=== PATIENT | female | born 1980 | race Caucasian/White ===

== ENCOUNTER 2018-04-14 18:36 | Inpatient (IN) | payer OTHER, MEDICARE ==
[2018-04-14] MEDS ORDERED: SODIUM CHLORIDE 0.9% 1000ML 1,000 ML IVS ONE ×2 (19:19)
[2018-04-14] MEDS ORDERED: PANTOPRAZOLE SODIUM IV 40 MG VIAL IV ONE (19:20)
[2018-04-14] MEDS ORDERED: PROMETHAZINE HCL INJ 12.5 MG in SODIUM CHLORIDE 0.9% 50ML 50 ML IVPB ONE (19:20)
--- NOTE | 2018-04-14 19:49 | RAD ---
EXAM DESCRIPTION: Abdomen Series CLINICAL HISTORY: 38 years Female [place] COMPARISON: None. FINDINGS: Heart size within normal limits. Pacemaker in place. [id number] catheter over the left chest. No acute consolidation or fluid. Mild elevation the right hemidiaphragm. Postsurgical changes the lower lumbar spine. Nonspecific bowel gas pattern. S[employer] shunt tube with its tip in the right pelvis. IMPRESSION: No acute abnormality is identified. S[employer]ING [employer] shunt tube with its tip in the right pelvis. There is an area of looping over the left upper abdomen. 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
[2018-04-14] MEDS ORDERED: SODIUM CHLORIDE 0.9% 50ML 50 ML ONE ×2 (20:12→22:06)
[2018-04-14] MEDS ORDERED: PROMETHAZINE HCL INJ 25 MG/ML VIAL ONE (20:12)
[2018-04-14] MEDS ORDERED: FLUCONAZOLE 100 MG TAB PO ONE (20:40)
[2018-04-14] MEDS ORDERED: MORPHINE SULFATE INJ 10 MG/ML VIAL IV ONE (20:50)
[2018-04-14] MEDS ORDERED: MAGNESIUM SULFATE PREMIX 2GM 2 GM in PREMIX BAG 1 BAG IVPB ONE (20:52)
[2018-04-14] MEDS ORDERED: CEFEPIME 1 GM in SODIUM CHLORIDE 0.9% 50ML 50 ML IVPB ONE (21:07)
[2018-04-14] MEDS ORDERED: CIPROFLOXACIN 500 MG TAB PO ONE (21:07)
[2018-04-14] MEDS ORDERED: MAGNESIUM SULFATE PREMIX 2GM 50 ML IVPB ONE (21:26)
--- NOTE | 2018-04-14 21:59 | ED.PDOC ---
History of Present Illness - General Chief Complaint: Problem Stated Complaint: Dx UTI, N/V/D, Bilateral flank pain, headache Time Seen by Provider: 04/14/18 18:51 Source: patient Exam Limitations: no limitations - History of Present Illness Initial Comments: the patient is a 38-year-old female presenting to the emergency room secondary to symptoms of pyelonephritis on the left side with urinary frequency and dysuria along with her recurrent nausea and vomiting that goes with her gastroparesis. The patient does appear to be very mildly dehydrated. She does have a port for medications. The patient was apparently started on oral ciprofloxacin by her primary care doctor 3 days ago but she reports she has been unable to hold down these medications. No syncope or near-syncope. No chest pain. No bilious vomiting and no blood. She has not actually thrown up since her arrival here. No fever. She does have left-sided costovertebral angle tenderness. as a matter of record I am very familiar with this patient. She has a very extensive history of serious medical problems. She also has a very extensive history of drug seeking, and can be highly devious and manipulative in that endeavor. she has previously asked for pain and nausea medications to the point where she stopped breathing, requiring resuscitation efforts by staff. I have personally witnessed this in the past. she has been to substance rehabilitation several times in the past Timing/Duration: 1 week Severity: moderate Improving Factors: nothing Worsening Factors: nothing Associated Symptoms: malaise, nausea/vomiting Allergies/Adverse Reactions: Allergies Diltiazem [From Cardizem CD] Allergy (Verified 04/14/18 19:25) Ketorolac Tromethamine [From Toradol] Allergy (Verified 04/14/18 19:25) Latex Allergy (Verified 04/14/18 19:25) Ondansetron [From Zofran] Allergy (Verified 04/14/18 19:25) Sulfa Antibiotics Allergy (Verified 04/14/18 19:25) Home Medications: Ambulatory Orders Amphetamine-Dextroamphetamine [Adderall] 30 mg PO QID 04/14/18 Duloxetine HCl [Cymbalta] 120 mg PO DAILY 04/14/18 Lurasidone HCl [Latuda] 120 mg PO DAILY 04/14/18 Temazepam [Restoril] 30 mg PO BEDTIME 04/14/18 Review of Systems - Review of Systems Constitutional: States: malaise EENTM: States: no symptoms reported Respiratory: States: no symptoms reported Cardiology: States: no symptoms reported Gastrointestinal/Abdominal: States: nausea, vomiting Genitourinary: States: no symptoms reported Musculoskeletal: States: back pain Skin: States: no symptoms reported Neurological: States: no symptoms reported Endocrine: States: no symptoms reported All other Systems: No Change from Baseline Past Medical History (General) - Patient Medical History Hx Seizures: No Hx Stroke: No Hx Dementia: No Hx Asthma: No Hx of COPD: No Hx Cardiac Disorders: Yes Hx Congestive Heart Failure: No Hx Pacemaker: Yes Hx Hypertension: No Hx Thyroid Disease: No Hx Diabetes: No Hx Gastroesophageal Reflux: No Hx Renal Disease: No Hx of HIV: No Hx MRSA: No Surgical History: appendectomy, cholecystectomy - Vaccination History Hx Tetanus, Diphtheria Vaccination: No Hx Influenza Vaccination: Yes - Social History Hx Tobacco Use: Yes Hx Alcohol Use: No Family Medical History - Family History Mother Family History: Unknown Physical Exam - Physical Exam General Appearance: Alert, No apparent distress Eye Exam: bilateral normal Ears, Nose, Throat: hearing grossly normal, normal ENT inspection, normal pharynx Neck: full range of motion, supple Respiratory: lungs clear, normal breath sounds, no respiratory distress, no accessory muscle use Cardiovascular/Chest: normal peripheral pulses, regular rate, rhythm, no edema Peripheral Pulses: radial,right: 2+, radial,left: 2+, dorsalis pedis,right: 2+, dorsalis pedis,left: 2+ Gastrointestinal/Abdominal: soft, other - mild diffuse discomfort Rectal Exam: deferred Back Exam: CVA tenderness (L) Extremity: no pedal edema, normal capillary refill Neurologic: digital production artist II-XII nml as tested, alert, oriented x 3 Skin Exam: normal color Comments: Vital Signs - 24 hr 04/14/18 19:06 Temperature 99.1 F Pulse Rate [ 71 monitor] Respiratory 16 Rate Blood Pressure 117/80 [Left Arm] O2 Sat by Pulse 99 Oximetry Progress - Progress Progress: 04/14/18 22:06 the patient is a 38-year-old female with a long-standing history of gastroparesis and recurrent urinary tract infections presenting with what is most likely pyelonephritis on the left side. This is complicated by her gastroparesis and inability to keep down her medications were keep herself adequately hydrated. The patient has received a liter of IV fluids and is receiving a dose of cefepime and ciprofloxacin. She will be admitted for continuation of IV fluids and antibiotic therapy. Symptoms will be controlled this best can be judiciously determined. - Results/Orders Results/Orders: 04/14/18 21:43 BLOOD CULTURE Stat Laboratory Results - last 24 hr 04/14/18 04/14/18 04/14/18 19:14 20:07 20:07 WBC 15.3 H RBC 4.00 L Hgb 12.6 Hct 38.1 MCV 95.4 MCH 31.5 H MCHC 33.1 RDW 13.9 Plt Count 317 MPV 8.4 Absolute Neuts (auto) 12.00 H Absolute Lymphs (auto) 2.10 Absolute Monos (auto) 1.20 H Absolute Eos (auto) 0.00 Absolute Basos (auto) 0.00 Neutrophils % 78.5 H Lymphocytes % 13.5 L Monocytes % 7.7 Eosinophils % 0.0 L Basophils % 0.3 Sodium 137 Potassium 3.5 L Chloride 105 Carbon Dioxide 22 Anion Gap 13.5 BUN 16 Creatinine 0.90 BUN/Creatinine Ratio 17.8 Random Glucose 114 H Serum Osmolality 275.9 Lactic Acid Calcium 9.4 Magnesium 1.7 L Total Bilirubin 0.3 AST 19 ALT 18 Alkaline Phosphatase 60 Serum Total Protein 6.6 Albumin 3.7 Globulin 2.9 Albumin/Globulin Ratio 1.3 Amylase 38 Lipase 24 Urine Color Yellow Urine Appearance Cloudy Urine pH 5.0 Ur Specific Thayer >= 1.030 Urine Protein Negative Urine Glucose (UA) Negative Urine Ketones Negative Urine Blood Negative Urine Nitrite Negative Urine Bilirubin Negative Urine Urobilinogen 0.2 Ur Leukocyte Esterase Small H Urine RBC 10-20 H Urine WBC 10-20 H Ur Epithelial Cells Tntc Amorphous Sediment 3+ Urine Bacteria 3+ H Urine Yeast 1+ budding H 04/14/18 20:07 WBC RBC Hgb Hct MCV MCH MCHC RDW Plt Count MPV Absolute Neuts (auto) Absolute Lymphs (auto) Absolute Monos (auto) Absolute Eos (auto) Absolute Basos (auto) Neutrophils % Lymphocytes % Monocytes % Eosinophils % Basophils % Sodium Potassium Chloride Carbon Dioxide Anion Gap BUN Creatinine BUN/Creatinine Ratio Random Glucose Serum Osmolality Lactic Acid < 0.3 L Calcium Magnesium Total Bilirubin AST ALT Alkaline Phosphatase Serum Total Protein Albumin Globulin Albumin/Globulin Ratio Amylase Lipase Urine Color Urine Appearance Urine pH Ur Specific Thayer Urine Protein Urine Glucose (UA) Urine Ketones Urine Blood Urine Nitrite Urine Bilirubin Urine Urobilinogen Ur Leukocyte Esterase Urine RBC Urine WBC Ur Epithelial Cells Amorphous Sediment Urine Bacteria Urine Yeast Departure - Departure Clinical Impression: Gastroparesis, Pyelonephritis Disposition: Admit Patient Referrals: MAMIE SOLIS [Primary Care Provider] - 1-2 Weeks Home Medications: Ambulatory Orders Amphetamine-Dextroamphetamine [Adderall] 30 mg PO QID 04/14/18 Duloxetine HCl [Cymbalta] 120 mg PO DAILY 04/14/18 Lurasidone HCl [Latuda] 120 mg PO DAILY 04/14/18 Temazepam [Restoril] 30 mg PO BEDTIME 04/14/18 Decision To Admit - Decistion To Admit Decision to Admit Reason: Medical Nature Decision to Admit Date: 04/14/18 Decision to Admit Time: 22:07
--- NOTE | 2018-04-14 22:02 | HP ---
SUPERVISING PHYSICIAN: Rory Tomlin MD CHIEF COMPLAINT: Lower abdominal pain, bilateral flank pain. HISTORY OF PRESENT ILLNESS: Ms. Anna is a 38-year-old, female patient that presented to the Emergency Room last night with complaints of left sided flank pain and ongoing urinary tract infection with some dysuria with recurrent nausea and vomiting. She does have a history of cyclic vomiting syndrome as well and was unable to hold any medications down after she was seen in the clinic this past Saturday for urinary tract infection and started on Cipro. She has not had any syncopal or near syncopal episodes. On admission, she denied any chest pain and no hematemesis. She was afebrile on initial presentation with blood pressure 117/80, temperature 99.1, saturation 99% on room air. On exam, she had severe left flank pain. Laboratory studies showed leukocytosis with white count 15,300 with left shift. Chemistries showed just a mildly low potassium at 3.5 along with a low magnesium at 1.7. Serum HCG was negative. Urinalysis on microscopic showed 10 to 20 WBCs, 10 to 20 RBCs with too numerous to count epithelials, but 3+ amorphus, 3+ bacteria and 1+ budding yeast. Blood cultures were completed as well as urine culture and then the patient was started on parenteral antibiotic to include cefepime as well as continued oral ciprofloxacin in the Emergency Room. Dr. Aranda, the Emergency Room physician, requested the patient be admitted for concerns for early pyelonephritis with the patient having cyclic vomiting syndrome and unable to hold any oral medication or oral hydration in of any difficult amount. She was admitted in stable condition. PAST MEDICAL HISTORY: 1. Cyclic vomiting syndrome. 2. 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 3. Hydrocephalus diagnosed in 2002 with ventriculoperitoneal shunt placement. 4. Migraines. 5. Hypertension. 6. Anxiety and depression. 7. Attention deficit hyperactivity disorder on Ritalin. PAST SURGICAL HISTORY: 1. Mediport in place. 2. Pacemaker in 2010. 3. Ventriculoperitoneal shunt placement in 2002. 4. Two left ankle surgeries. 5. Cholecystectomy. 6. Appendectomy. 7. 360 fusion of the back. 8. Multiple arthroscopic procedures on both knees. HOME MEDICATIONS: 1. Maxalt 10 mg p.r.n. 2. Clonidine 0.2 mg q.1h. 3. Xanax 2 mg t.i.d. 4. Metoprolol 50 mg daily. 5. Lisinopril 40 mg daily. 6. Adderall 30 mg q.i.d. 7. Restoril 30 mg at bedtime. 8. Latuda 120 mg daily. ALLERGIES: CARDIZEM, FENTANYL, TORADOL, ZOFRAN, LYRICA, SULFA CONTAINING ANTIBIOTICS. FAMILY HISTORY: Mother and father both have depression and anxiety issues along with hypertension. She has one younger sister that is healthy. SOCIAL HISTORY: The patient is disabled. She lives in [facility]. She does smoke half a pack of cigarettes a day, but denies any alcohol usage or illicit drug use. She is . She does not have any children. REVIEW OF SYSTEMS: CONSTITUTIONAL: Positive for general malaise. No fevers, chills or unintentional weight loss or gain. HEENT: Denies nasal congestion, earaches, sore throat, vision changes. RESPIRATORY: Denies shortness of breath, wheezing, coughing or exertional dyspnea. CARDIOVASCULAR: On admission to the Medical/Surgical Floor, the patient does report chest pains, but denies any syncopal episodes. GASTROINTESTINAL: As noted in history of present illness, nausea and vomiting with lower quadrant abdominal pain or suprapubic pain. GENITOURINARY: Notable dysuria with some suprapubic discomfort. No hematuria or polyuria. NEUROLOGIC: She denies any neurological deficits, syncopal episodes, ataxia, seizures or other focal neurological deficits. PHYSICAL EXAMINATION: VITAL SIGNS: Temperature 99.1. Pulse 71. Blood pressure 117/80. Respirations 16. Saturation 99% on room air. Admission weight 107.5 kg. GENERAL: On admission to the Medical/Surgical Floor, the patient was resting comfortable in no acute distress, very well-nourished. HEENT: Tympanic membranes clear bilaterally. Oropharynx is pink, moist without any lesions. NECK: Supple, nontender with full range of motion. RESPIRATORY: Lungs clear to auscultation bilaterally without any rhonchi, wheezes, or rales. CARDIOVASCULAR: Regular rate and rhythm without any appreciable murmurs, gallops, or rubs. ABDOMEN: Soft with some mild diffuse discomfort noted, but no rebound tenderness , no guarding. EXTREMITIES: There is no cyanosis, clubbing or edema. BACK: Notable CVA tenderness on the left. NEUROLOGIC: The patient is alert and oriented times three. Cranial nerves II- XII are grossly intact. Facial features are symmetrical. Extraocular movements are within normal limits. There is no nystagmus noted. LABORATORY: CBC showed white count 15,300 with hemoglobin 12.6, hematocrit 38.1 , platelet count 317,000. Differential does show a left shift. Chemistries showed low potassium of 3.5. Otherwise, other electrolytes were within normal limits. Magnesium was low at 1.7. Lactic acid 0.3, creatinine 0.9, BUN 16. Liver functions all within normal limits as well as amylase and lipase. Serum HCG was negative. Urinalysis showed cloudy urine with greater than 1.030 specific gravity, pH 5, small amount of leukocyte esterase with microscopic revealing 10 to 20 RBCs and WBCs and too numerous to count epithelials with 3+ amorphus sediment and 3+ bacteria with 1+ budding hyphae. RADIOLOGY: She had a normal x-ray in the Emergency Room prior to admission with no acute abnormalities identified. Chest x-ray was pending at time of admission. ASSESSMENT: 1. Urinary tract infection having failed to respond to outpatient treatment plan, now with concerns for developing pyelonephritis, complicated by underlying yeast infection. 2. Cyclic vomiting syndrome requiring aggressive medical management, likely worsened by underlying infectious process to include urinary tract infection. 3. History of hydrocephalus with a ventriculoperitoneal shunt with no complications noted. 4. History of supraventricular tachycardia with previous three failed ablations and AV node obliteration in 2010 requiring pacemaker implantation. 5. History of migraines. 6. Hypertension, fairly well controlled. 7. Anxiety and depression. 8. Attention deficit hyperactivity disorder on Ritalin. PLAN: The patient is going to be admitted to the Medical/Surgical Floor for ongoing treatment of urinary tract infection with likely pyelonephritis. We will do an ultrasound in the morning of the kidneys to further evaluate for pyelonephritis. Until then, we will continue antibiotics with cefepime. In regards to the yeast infection, she was given Diflucan. We will go ahead and give her 200 mg of Diflucan daily until we get her culture back. She will be on DVT prophylaxis per protocol. We will anticipate length of stay to be at least 2 to 3 days. Until the patient is showing clinical improvement and can transition to p.o. medications for outpatient management, we will continue to monitor the patient closely and treat as needed. Once able to transition to the outpatient setting, she will need followup with her primary care physician, Dr. Ly in [place], [place]. #[id number] #[id number] MELLISA
[2018-04-14] MEDS ORDERED: CEFEPIME 2 GM VIAL ONE (22:05)
[2018-04-14] MEDS ORDERED: IV SET AND CAP CHANGE INJ INJ SCH (23:00)
[2018-04-14] MEDS ORDERED: MORPHINE SULFATE INJ 10 MG/ML VIAL IV PRN (23:02)
[2018-04-15] MEDS ORDERED: PROMETHAZINE HCL INJ 25 MG/ML VIAL ONE ×4 (00:14→22:44)
[2018-04-15] MEDS ORDERED: MORPHINE SULFATE INJ 10 MG/ML VIAL ONE (00:14)
[2018-04-15] MEDS ORDERED: SODIUM CHLORIDE 0.9% 50ML 50 ML ONE ×5 (00:15→22:45)
[2018-04-15] MEDS: PROMETHAZINE HCL INJ 25 MG in SODIUM CHLORIDE 0.9% 50ML 50 ML IVPB PRN ×4 (00:31→22:47)
[2018-04-15] MEDS: SODIUM CHLORIDE 0.9% (FLUSH) 10 ML SYG IV PRN ×3 (00:32→04:39)
[2018-04-15] MEDS: KCL 20MEQ/D5 1/2NS 1,000 ML IVS PRN ×3 (01:09→20:01)
[2018-04-15] MEDS: diphenhydrAMINE HCL 50 MG/ML VIAL IV PRN ×3 (03:37→19:47)
[2018-04-15] MEDS: MORPHINE SULFATE INJ 10 MG/ML VIAL IV PRN ×4 (03:37→20:00)
[2018-04-15] MEDS: NICOTINE PATCH 14 MG TD SCH ×2 (05:06→09:08)
--- NOTE | 2018-04-15 07:02 | RAD ---
EXAM DESCRIPTION: Single view of the chest CLINICAL HISTORY: chest pain COMPARISON: None. FINDINGS: Single frontal view of the chest. Right-sided dual-lead pacemaker. Left-sided Mediport. The jugular peritoneal shunt tubing. Low lung volumes. The cardiomediastinal silhouette has normal size and contour. No definite consolidation, pneumothorax, or pleural effusion. Crowding of hilar structures likely related to low lung volumes. No acute osseous abnormalities. Upper abdominal soft tissues are unremarkable. IMPRESSION: 1. No acute pneumonic process identified. Electronically signed by: José Miguel Nolen 04/15/2018 7:00 AM CDT
[2018-04-15] MEDS ORDERED: SODIUM CHL 0.9% 50ML MIN-BAG+ 50 ML IVPB ONE (08:03)
[2018-04-15] MEDS ORDERED: CEFEPIME 2 GM VIAL ONE ×2 (08:03→19:38)
[2018-04-15] MEDS: CEFEPIME 1 GM in SODIUM CHLORIDE 0.9% 50ML 50 ML IVPB SCH ×2 (09:07→20:56)
[2018-04-15] MEDS: FLUCONAZOLE 100 MG TAB PO SCH (09:08)
--- NOTE | 2018-04-15 16:48 | US ---
EXAM DESCRIPTION: Renal CLINICAL HISTORY: 38 years Female pyelonephritis COMPARISON: None. TECHNIQUE: Transabdominal grayscale imaging performed to evaluate the kidneys. FINDINGS: Kidneys appear normal in size. The right measures 10.4 x 4.6 cm. Left kidney measures 8.9 x 6.2 cm. No hydronephrosis mass or calculus. Unremarkable aorta. Bladder was not included. IMPRESSION: Unremarkable kidneys. If there is concern for pyelonephritis recommend contrast-enhanced CT with delayed images to the kidneys Electronically signed by: Monika Ferrera MD 04/15/2018 4:47 PM CDT
[2018-04-15] MEDS ORDERED: TEMAZEPAM 15 MG CAP ONE (19:38)
--- NOTE | 2018-04-15 19:58 | PN ---
DATE: 04/15/18 SUPERVISING PHYSICIAN: José Miguel Tomlin M.D. SUBJECTIVE: The patient is lying in bed. She has just had some clear liquids. She tolerated those well. She still has some complaints of some lower abdominal pain, but no nausea or vomiting, constipation, diarrhea, chest pain or shortness of breath. OBJECTIVE: VITAL SIGNS: She is afebrile, heart rate 71, blood pressure 114/74, respiratory rate 18, O2 sat 95%. LABORATORY: WBCs are 13.4 with hemoglobin 11.8, hematocrit 36. Neutrophils are normal at 74.5. Electrolytes are basically within normal limits, but her blood glucose is slightly high at 126. Her second urinalysis is basically within normal limits except for she has 10 to 20 WBCs with 1+ budding yeast. Urine culture is pending. Preliminary blood cultures are negative to date. Renal ultrasound shows unremarkable kidneys. There is concern for pyelonephritis. Recommend contrast enhanced CT. Chest x-ray shows no acute pneumonic process identified. All other labs and films have been reviewed via the EMR. ASSESSMENT: 1. Urinary tract infection having failed to respond to outpatient treatment plan. Also may be complicated by yeast infection. 2. Cyclic vomiting syndrome requiring aggressive medical management, likely worsened by underlying infectious process that includes urinary tract infection. 3. History of hydrocephalus with a ventriculoperitoneal shunt with no complications noted. 4. History of supraventricular tachycardia. She had 3 previous failed ablations and required a pacemaker. 5. History of migraines. 6. Hypertension, fairly well controlled. 7. Anxiety and depression. 8. Attention deficit disorder on Ritalin. PLAN: We will continue present supportive care. Her initial urinalysis was contaminated, so another one was done. Initially I had ordered a CT of the abdomen and pelvis with contrast to rule out pyelonephritis, but due to her second urinalysis that is much improved as well as the patient being a very difficult IV stick. Will repeat labs in the morning to monitor her white count as well as her oral intake as I have advanced her diet. I will repeat her labs in the morning and will monitor cultures, and if needed will order a CT scan tomorrow sometime. Will advance her diet further tomorrow if there is no nausea and vomiting. She understands that we will take her off her IV pain medications tomorrow and change them to her routine medications. Hopefully we can discharge her in the next 1 to 2 days with close followup with Dr. Ly, her primary care physician. Will continue to monitor her closely and follow as needed. Dr. Tomlin is the collaborating physician available for consultation. #[id number] [facility]
[2018-04-15] MEDS ORDERED: NON-FORMULARY MEDICATION 1 EA MIS (Temazepam [Restoril] 30 MG) PO SCH (21:00)
[2018-04-16] MEDS: MORPHINE SULFATE INJ 10 MG/ML VIAL IV PRN ×3 (00:10→08:13)
[2018-04-16] MEDS: KCL 20MEQ/D5 1/2NS 1,000 ML IVS PRN (04:14)
[2018-04-16] MEDS: diphenhydrAMINE HCL 50 MG/ML VIAL IV PRN (04:15)
[2018-04-16] MEDS ORDERED: CEFEPIME 2 GM VIAL ONE (07:49)
[2018-04-16] MEDS ORDERED: SODIUM CHLORIDE 0.9% 50ML 50 ML ONE (07:49)
[2018-04-16] MEDS: CEFEPIME 1 GM in SODIUM CHLORIDE 0.9% 50ML 50 ML IVPB SCH (08:16)
[2018-04-16] MEDS: FLUCONAZOLE 100 MG TAB PO SCH (08:17)
[2018-04-16] MEDS: NICOTINE PATCH 14 MG TD SCH (08:17)
[2018-04-16] MEDS ORDERED: MORPHINE SULFATE INJ 10 MG/ML VIAL IV PRN (08:56)
[2018-04-16] MEDS ORDERED: AMPHETAMINE DEXTROAMPHETAMINE 30 MG PO SCH (09:00)
[2018-04-16] MEDS ORDERED: METOPROLOL SUCCINATE XL 50 MG TAB PO SCH (09:00)
[2018-04-16] MEDS ORDERED: LISINOPRIL 10 MG TAB PO SCH (09:00)
[2018-04-16] MEDS ORDERED: ALPRAZOLAM 2 MG PO SCH (09:00)
[2018-04-16] MEDS ORDERED: LURASIDONE HCL 120 MG PO SCH (09:00)
[2018-04-16] MEDS ORDERED: NON-FORMULARY MEDICATION 1 EA MIS (Lisinopril [Lisinopril] 40 MG) PO SCH (09:00)
[2018-04-16 09:18] VITALS: BP 128/87; TEMP 97.9; O2SAT 95
[2018-04-16] MEDS ORDERED: ALPRAZolam 0.5 MG TAB PO SCH (15:00)
[2018-04-16] MEDS ORDERED: TEMAZEPAM 15 MG CAP PO SCH (21:00)
--- NOTE | 2018-04-17 09:14 | DS ---
SUPERVISING PHYSICIAN: José Miguel Tomlin MD DISCHARGE DIAGNOSES: 1. Urinary tract infection having failed to respond to outpatient treatment plan. Also may be complicated by yeast infection. 2. Cyclic vomiting syndrome requiring aggressive medical management, likely worsened by underlying infectious process that includes urinary tract infection. 3. History of hydrocephalus with a ventriculoperitoneal shunt with no complications noted. 4. History of supraventricular tachycardia. She had 3 previous failed ablations and required a pacemaker. 5. History of migraines. 6. Hypertension, fairly well controlled. 7. Anxiety and depression. 8. Attention deficit disorder on Ritalin. HISTORY OF PRESENT ILLNESS: Ms. Anna is a 38-year-old, female patient that presented to the Emergency Room last night with complaints of left sided flank pain and ongoing urinary tract infection with some dysuria with recurrent nausea and vomiting. She does have a history of cyclic vomiting syndrome as well and was unable to hold any medications down after she was seen in the clinic this past Saturday for urinary tract infection and started on Cipro. She has not had any syncopal or near syncopal episodes. On admission, she denied any chest pain and no hematemesis. She was afebrile on initial presentation with blood pressure 117/80, temperature 99.1, saturation 99% on room air. On exam, she had severe left flank pain. Laboratory studies showed leukocytosis with white count 15,300 with left shift. Chemistries showed just a mildly low potassium at 3.5 along with a low magnesium at 1.7. Serum HCG was negative. Urinalysis on microscopic showed 10 to 20 WBCs, 10 to 20 RBCs with too numerous to count epithelials, but 3+ amorphus, 3+ bacteria and 1+ budding yeast. Blood cultures were completed as well as urine culture and then the patient was started on parenteral antibiotic to include cefepime as well as continued oral ciprofloxacin in the Emergency Room. Dr. Aranda, the Emergency Room physician, requested the patient be admitted for concerns for early pyelonephritis with the patient having cyclic vomiting syndrome and unable to hold any oral medication or oral hydration in of any difficult amount. She was admitted in stable condition. HOSPITAL COURSE: The patient's nausea and vomiting resolved. She was treated with Cefepime as well as some Diflucan for the yeast infection. A renal ultrasound was completed and showed unremarkable kidneys and if there was a concern for pyelonephritis, recommend contrast enhanced CT with delayed images to the kidneys. The patient's white count had come down on the morning that she had the ultrasound.to 13.4. She did express concerns that she was a difficult IV stick and Radiology is unable to put contrast through her port so we discussed having the CT of her kidneys done the next day if her white count did not improve and if her pain did not improve. This morning, she had no further complications with nausea or vomiting. Her white count came down to 9, 000. There was no left shift on her differential. Her electrolytes are basically within normal limits. It was also felt that her first urinalysis was contaminated and repeat urinalysis was done that was basically within normal limits with the exception she had 10 to 20 urine WBCs and 1+ urine yeast. There were no further complaints of nausea or vomiting. She tolerated her regular breakfast and lunch without any problems. She will be discharged home today in stable condition. DISCHARGE PLAN: The patient will be discharged home in stable condition. She is to resume her Cipro. Her blood cultures were negative after 24 hours and her second urine culture is pending. It would be beneficial to review that at her followup visit with Dr. Ly on 04/24/18 at 2:00 P.M. She is to continue her previous medications. I have given her some additional Phenergan tablets for nausea as well as recommended that she continue her Cipro as previously ordered. She is to return to the hospital or call Dr. Ly's office for any problems or complications. She did ask for additional pain medication that I felt would not be beneficial at this time and that she is to call Dr. Ly's office for any narcotics or any further problems. DISCHARGE MEDICATIONS: 1. Restoril. 2. Latuda. 3. Cymbalta. 4. Adderall. 5. Clonidine. 6. Xanax. 7. Lopressor. 8. Lisinopril. 9. Maxalt. 10. Phenergan tablets. #[id number] [facility]
== END 2018-04-16 13:15 | disposition home or self-care (01) | DRG 690 ==
LOC: ER 18:36 → MS 22:00
PROVIDERS: ADMIT Nurse Practitioner Family; ATTEND Nurse Practitioner Family
DX: N39.0 Urinary tract infection, site not specified (principal); B37.49 Other urogenital candidiasis; I47.1 Supraventricular tachycardia; G43.A0 Cyclical vomiting, in migraine, not intractable; Z95.0 Presence of cardiac pacemaker; G43.909 Migraine, unspecified, not intractable, without status migrainosus; I10 Essential (primary) hypertension; F41.9 Anxiety disorder, unspecified; F32.9 Major depressive disorder, single episode, unspecified; F90.9 Attention-deficit hyperactivity disorder, unspecified type; Z98.1 Arthrodesis status; Z88.1 Allergy status to other antibiotic agents; Z88.5 Allergy status to narcotic agent; Z88.2 Allergy status to sulfonamides; Z88.8 Allergy status to other drugs, medicaments and biological substances

== ENCOUNTER 2018-04-17 13:06 | Emergency (ER) | payer OTHER, MEDICARE ==
[2018-04-17 13:28] VITALS: TEMP 99.9
[2018-04-17] MEDS ORDERED: CEFEPIME 2 GM in SODIUM CHL 0.9% 50ML MIN-BAG+ 50 ML IVPB ONE (13:32)
[2018-04-17] MEDS ORDERED: SCOPOLAMINE PATCH 1.5MG 1 EA TD ONE (13:33)
[2018-04-17] MEDS ORDERED: FLUCONAZOLE 100 MG TAB PO ONE (13:33)
[2018-04-17] MEDS ORDERED: SODIUM CHL 0.9% 50ML MIN-BAG+ 50 ML IVPB ONE (13:41)
[2018-04-17] MEDS ORDERED: CEFEPIME 2 GM VIAL ONE (13:41)
[2018-04-17] MEDS ORDERED: BUTORPHANOL TARTRATE 2 MG/ML VIAL IV ONE (14:06)
[2018-04-17] MEDS ORDERED: diphenhydrAMINE HCL 25 MG CAP PO ONE (14:07)
--- NOTE | 2018-04-17 15:30 | ED.PDOC ---
History of Present Illness - General Chief Complaint: GI Problem Stated Complaint: N/V/D, back pain Time Seen by Provider: 04/17/18 13:08 Source: patient Exam Limitations: no limitations - History of Present Illness Initial Comments: the patient is a 38-year-old female presenting to the emergency room secondary to complaints of recurrent nausea and vomiting and her back pain. She is not really having urinary symptoms. The patient was actually just discharged from the hospital yesterday. She was admitted for mild dehydration due to that issue as well as for possible pyelonephritis given the report of the urinary tract infection diagnosed Saturday according to her. So far urine cultures here have not grown out anything. She does have yeast in her urine. She did receive a dose of Diflucan a couple of days ago and also received another dose here today. The patient does have a history of cyclical nausea and vomiting as well as gastroparesis as well as significant drug-seeking behavior. The patient does not actually appear to be in any distress. She has not actually thrown up or tried to throw up since her arrival here. the patient actually had a renal ultrasound done here yesterday which was essentially normal. Timing/Duration: unsure Severity: moderate Improving Factors: nothing Worsening Factors: nothing Associated Symptoms: loss of appetite, nausea/vomiting Allergies/Adverse Reactions: Allergies Diltiazem [From Cardizem CD] Allergy (Verified 04/14/18 19:25) Fentanyl Allergy (Verified 04/14/18 23:17) Ketorolac Tromethamine [From Toradol] Allergy (Verified 04/14/18 19:25) Latex Allergy (Verified 04/14/18 19:25) Ondansetron [From Zofran] Allergy (Verified 04/14/18 19:25) Pregabalin [From Lyrica] Allergy (Verified 04/14/18 23:17) Sulfa Antibiotics Allergy (Verified 04/14/18 19:25) Home Medications: Ambulatory Orders Alprazolam [Xanax] 2 mg PO TID 04/14/18 Amphetamine-Dextroamphetamine [Adderall 30 mg] 30 mg PO QID 04/14/18 Clonidine HCl 0.2 mg PO Q1H PRN 04/14/18 Duloxetine HCl [Cymbalta] mg PO DAILY 04/14/18 Lisinopril 40 mg PO DAILY 04/14/18 Lurasidone HCl [Latuda] 120 mg PO DAILY 04/14/18 Metoprolol Tartrate [Lopressor] 50 mg PO DAILY 04/14/18 Rizatriptan Benzoate [Maxalt] 10 mg PO PRN PRN 04/14/18 Temazepam [Restoril] 30 mg PO BEDTIME 04/14/18 Promethazine Tab [Phenergan Tablet] 25 mg PO Q4H PRN #30 tab 04/16/18 Prochlorperazine Supp [Compazine Suppository] 25 mg [place] BID PRN #14 sup 04/17/18 Review of Systems - Review of Systems Constitutional: States: malaise EENTM: States: no symptoms reported Respiratory: States: no symptoms reported Cardiology: States: no symptoms reported Gastrointestinal/Abdominal: States: nausea, vomiting - no blood no bile Genitourinary: States: no symptoms reported Musculoskeletal: States: no symptoms reported Skin: States: no symptoms reported Neurological: States: no symptoms reported Endocrine: States: no symptoms reported All other Systems: No Change from Baseline Past Medical History (General) - Patient Medical History Hx Seizures: Yes - When given lyrica Hx Stroke: No Hx Dementia: No Hx Asthma: No Hx of COPD: No Hx Cardiac Disorders: Yes Hx Congestive Heart Failure: No Hx Pacemaker: Yes Hx Hypertension: Yes Hx Thyroid Disease: No Hx Diabetes: No Hx Gastroesophageal Reflux: No Hx Renal Disease: No Hx of HIV: No Hx MRSA: No Surgical History: appendectomy, cholecystectomy, other - Vaccination History Hx Tetanus, Diphtheria Vaccination: No Hx Influenza Vaccination: Yes Hx Pneumococcal Vaccination: Yes - Social History Hx Tobacco Use: Yes Hx Alcohol Use: No Hx Substance Use: No Hx Physical Abuse: No Hx Emotional Abuse: No Family Medical History - Family History Mother Family History: Unknown Physical Exam - Physical Exam General Appearance: Alert, Comfortable, No apparent distress Eye Exam: bilateral normal Ears, Nose, Throat: hearing grossly normal, other - mucous membranes are moist. Neck: full range of motion, supple Respiratory: lungs clear, normal breath sounds, no respiratory distress, no accessory muscle use Cardiovascular/Chest: normal peripheral pulses, regular rate, rhythm, no edema Peripheral Pulses: radial,right: 2+, radial,left: 2+, dorsalis pedis,right: 2+, dorsalis pedis,left: 2+ Gastrointestinal/Abdominal: non tender, soft - obese Rectal Exam: deferred Back Exam: other - mild left-sided low back discomfort which may or may not be chronic Extremity: non-tender, normal inspection, no pedal edema, normal capillary refill Neurologic: press tender star signal II-XII nml as tested, alert, normal mood/affect, oriented x 3 Skin Exam: normal color Comments: Vital Signs - 24 hr 04/17/18 13:26 Temperature 99.9 F H Pulse Rate [ 70 Left Radial] Respiratory 20 Rate Blood Pressure 178/114 [Left Arm] O2 Sat by Pulse 100 Oximetry Progress - Progress Progress: 04/17/18 15:32 the patient is a 38-year-old female presenting to the emergency room secondary to her cyclical nausea and vomiting and gastroparesis. She does not appear dehydrated. We're going to give the patient a trial of a scopolamine patch. the patch was placed here and the patient has been monitored for a couple of hours. Additionally she will be written for prochlorperazine suppositories to be used twice daily if needed for nausea and vomiting. these are different combination of nausea medications than she is used to. Hopefully they will prove more beneficial. She did receive a dose of cefepime today to help complete her therapy for any urinary tract infection that she did have. she did receive a liter of fluids here regardless. She needs to continue her home medications. She needs to follow back up with her primary care doctor, Dr. Ly tomorrow. blood work here was reassuring today. She did receive a dose of pain medication for her back pain here as well. - Results/Orders Results/Orders: Laboratory Results - last 24 hr 04/17/18 04/17/18 14:00 14:00 WBC 11.0 H RBC 4.04 L Hgb 12.8 Hct 38.3 MCV 94.8 MCH 31.6 H MCHC 33.5 RDW 13.7 Plt Count 285 MPV 8.6 Absolute Neuts (auto) 8.30 H Absolute Lymphs (auto) 1.70 Absolute Monos (auto) 0.70 Absolute Eos (auto) 0.20 Absolute Basos (auto) 0.20 H Neutrophils % 75.3 Lymphocytes % 15.5 L Monocytes % 6.3 Eosinophils % 1.5 Basophils % 1.4 Sodium 141 Potassium 3.9 Chloride 106 Carbon Dioxide 26 Anion Gap 12.9 BUN 11 Creatinine 0.94 BUN/Creatinine Ratio 11.7 Random Glucose 100 Serum Osmolality 280.7 Calcium 9.2 Total Bilirubin 0.3 AST 22 ALT 18 Alkaline Phosphatase 64 Serum Total Protein 6.9 Albumin 3.8 Globulin 3.1 Albumin/Globulin Ratio 1.2 Departure - Departure Clinical Impression: Cyclical vomiting with nausea Qualifiers: Vomiting Intractability: unspecified Qualified Code(s): G43.A0 - Cyclical vomiting, not intractable Disposition: Discharge to Home or Self Care Condition: Fair Departure Forms: ED Discharge - Pt. Copy, Patient Portal Self Enrollment Diet: bland diet Activity: increase activity as tolerated Referrals: MAMIE LY [Primary Care Provider] - 1-2 Days Prescriptions: Prochlorperazine Supp [Compazine Suppository] 25 mg WA BID PRN #14 sup PRN Reason: Nausea/Vomiting Home Medications: Ambulatory Orders Alprazolam [Xanax] 2 mg PO TID 04/14/18 Amphetamine-Dextroamphetamine [Adderall 30 mg] 30 mg PO QID 04/14/18 Clonidine HCl 0.2 mg PO Q1H PRN 04/14/18 Duloxetine HCl [Cymbalta] mg PO DAILY 04/14/18 Lisinopril 40 mg PO DAILY 04/14/18 Lurasidone HCl [Latuda] 120 mg PO DAILY 04/14/18 Metoprolol Tartrate [Lopressor] 50 mg PO DAILY 04/14/18 Rizatriptan Benzoate [Maxalt] 10 mg PO PRN PRN 04/14/18 Temazepam [Restoril] 30 mg PO BEDTIME 04/14/18 Promethazine Tab [Phenergan Tablet] 25 mg PO Q4H PRN #30 tab 04/16/18 Prochlorperazine Supp [Compazine Suppository] 25 mg WA BID PRN #14 sup 04/17/18 Additional Instructions: the patient is a 38-year-old female presenting to the emergency room secondary to her cyclical nausea and vomiting and gastroparesis. She does not appear dehydrated. We're going to give the patient a trial of a scopolamine patch. the patch was placed here and the patient has been monitored for a couple of hours. Additionally she will be written for prochlorperazine suppositories to be used twice daily if needed for nausea and vomiting. these are different combination of nausea medications than she is used to. Hopefully they will prove more beneficial. She did receive a dose of cefepime today to help complete her therapy for any urinary tract infection that she did have. she did receive a liter of fluids here regardless. She needs to continue her home medications. She needs to follow back up with her primary care doctor, Dr. Ly tomorrow. blood work here was reassuring today. She did receive a dose of pain medication for her back pain here as well.
[2018-04-17] MEDS ORDERED: HEPARIN SODIUM 100 U/ML 5 ML SYG IV ONE (15:58)
[2018-04-17 16:04] VITALS: BP 141/84; O2SAT 99
== END 2018-04-17 16:05 | disposition home or self-care (01) ==
LOC: ER 13:06
DX: G43.A0 Cyclical vomiting, in migraine, not intractable (principal); R19.7 Diarrhea, unspecified; M54.9 Dorsalgia, unspecified; N39.0 Urinary tract infection, site not specified; I10 Essential (primary) hypertension; I51.9 Heart disease, unspecified; Z95.0 Presence of cardiac pacemaker; Z87.891 Personal history of nicotine dependence; Z90.49 Acquired absence of other specified parts of digestive tract
CPT/HCPCS: 36415; 80053; 85025; J0595; J0692; J1642; J7050; Q0163

== ENCOUNTER 2018-08-06 08:10 | Emergency (ER) | payer OTHER, MEDICARE ==
[2018-08-06] MEDS ORDERED: SODIUM CHLORIDE 0.9% 1000ML 1,000 ML IVS ONE (08:36)
[2018-08-06] MEDS ORDERED: PROMETHAZINE HCL INJ 25 MG in SODIUM CHLORIDE 0.9% 50ML 50 ML IVPB ONE (08:36)
[2018-08-06] MEDS ORDERED: PANTOPRAZOLE SODIUM IV 40 MG VIAL IV ONE (08:36)
[2018-08-06] MEDS ORDERED: PROMETHAZINE HCL INJ 25 MG/ML VIAL ONE (08:53)
[2018-08-06] MEDS ORDERED: SODIUM CHLORIDE 0.9% 50ML 50 ML ONE (08:53)
--- NOTE | 2018-08-06 09:02 | ED.PDOC ---
History of Present Illness - General Chief Complaint: Abdominal Pain Stated Complaint: abdominal pain, nausea, vomiting x 4 days Time Seen by Provider: 08/06/18 08:12 Source: patient Exam Limitations: no limitations - History of Present Illness Initial Comments: the patient is a 38-year-old female presenting to the emergency room reporting 6-7 days of intermittent nausea and vomiting with worsening in the last 24 hours. She reports that she did contact her primary care doctor early this morning but he was not able to get her in until tomorrow. No fevers. She has not thrown up or attempted to throw up since her arrival here. Patient does not appear markedly dehydrated. She reports diffuse abdominal pain. She is morbidly obese. no palpable abdominal mass and no obvious rebound or peritoneal signs. She reports that she thinks she may have a urinary tract infection. She has had urinary tract infections in the past. Additionally she has had issues with chronic gastroparesis along with chronic abdominal pain and mild chronic pancreatitis in the past. Significantly the patient does have a history of drug-seeking and pain medication abuse as well as nausea medication abuse. She has had a history of listing medications as allergies in order to obtain more abusable medications. She has had a history of completely fabricating symptoms as well to obtain desired medications. She also does have a significant history of multiple serious chronic medical problems which necessitates the need for not insubstantial workups at most of her visits even if drug-seeking is suspected. She has had a history of abusing medications to the point of loss of consciousness. again the patient does not appear to be in any distress at this point in time and she does not appear to be significantly clinically dehydrated. workup including laboratory work and an abdominal x-ray series will be obtained, and the patient will be given the benefit of the doubt and treated w ith a dose of piggybacked nausea medication along with a liter of IV fluids and some Protonix. additional treatment will depend on the results of the workup. The patient does have a port. This will be used if she has a very difficult IV access. Additionally the patient is in a right lower extremity cast secondary to a foot fracture from a fall a few weeks ago. the patient's preferred medications of abuse are IV morphine, IV Phenergan and IV Benadryl, all IV push of course. She does also have a significant history of swooning when she leaves the hospital if she does not receive the medications that she wants. she has been here for a couple of hours now without any evidence of any vomiting. She has tolerated oral intake.she is currently sleeping comfortably. Timing/Duration: unsure Severity: moderate Improving Factors: nothing Worsening Factors: nothing Associated Symptoms: loss of appetite, malaise, nausea/vomiting Allergies/Adverse Reactions: Allergies Diltiazem [From Cardizem CD] Allergy (Verified 08/06/18 08:55) Fentanyl Allergy (Verified 08/06/18 08:55) Ketorolac Tromethamine [From Toradol] Allergy (Verified 08/06/18 08:55) Latex Allergy (Verified 08/06/18 08:55) Ondansetron [From Zofran] Allergy (Verified 08/06/18 08:55) Pregabalin [From Lyrica] Allergy (Verified 08/06/18 08:55) Sulfa Antibiotics Allergy (Verified 08/06/18 08:55) Home Medications: Ambulatory Orders Alprazolam [Xanax] 2 mg PO TID 04/14/18 Amphetamine-Dextroamphetamine [Adderall 30 mg] 30 mg PO QID 04/14/18 Clonidine HCl 0.2 mg PO Q1H PRN 04/14/18 Duloxetine HCl [Cymbalta] mg PO DAILY 04/14/18 Lisinopril 40 mg PO DAILY 04/14/18 Lurasidone HCl [Latuda] 120 mg PO DAILY 04/14/18 Metoprolol Tartrate [Lopressor] 50 mg PO DAILY 04/14/18 Rizatriptan Benzoate [Maxalt] 10 mg PO PRN PRN 04/14/18 Temazepam [Restoril] 30 mg PO BEDTIME 04/14/18 Promethazine Tab [Phenergan Tablet] 25 mg PO Q4H PRN #30 tab 04/16/18 Prochlorperazine Supp [Compazine Suppository] 25 mg MA BID PRN #14 sup 04/17/18 Review of Systems - Review of Systems Constitutional: States: malaise EENTM: States: no symptoms reported Respiratory: States: no symptoms reported Cardiology: States: no symptoms reported Gastrointestinal/Abdominal: States: abdominal pain, nausea, vomiting. Denies: constipation, diarrhea Genitourinary: States: dysuria - mild, frequency Musculoskeletal: States: back pain - chronic Skin: States: no symptoms reported Neurological: States: no symptoms reported - chronic issues only Endocrine: States: no symptoms reported All other Systems: No Change from Baseline Past Medical History (General) - Patient Medical History Hx Seizures: Yes - When given lyrica Hx Stroke: No Hx Dementia: No Hx Asthma: No Hx of COPD: No Hx Cardiac Disorders: Yes Hx Congestive Heart Failure: No Hx Pacemaker: Yes Hx Hypertension: Yes Hx Thyroid Disease: No Hx Diabetes: No Hx Gastroesophageal Reflux: No Hx Renal Disease: No Hx of HIV: No Hx MRSA: No - Vaccination History Hx Tetanus, Diphtheria Vaccination: No Hx Influenza Vaccination: Yes Hx Pneumococcal Vaccination: Yes - Social History Hx Tobacco Use: Yes Hx Alcohol Use: No Hx Substance Use: No Hx Physical Abuse: No Hx Emotional Abuse: No Family Medical History - Family History Mother Family History: Unknown Physical Exam - Physical Exam General Appearance: Alert, Comfortable, No apparent distress Eye Exam: bilateral normal Ears, Nose, Throat: hearing grossly normal, normal ENT inspection Neck: full range of motion, supple Respiratory: lungs clear, normal breath sounds, no respiratory distress, no accessory muscle use Cardiovascular/Chest: normal peripheral pulses, regular rate, rhythm, no edema Peripheral Pulses: radial,right: 2+, radial,left: 2+, dorsalis pedis,left: 2+ Gastrointestinal/Abdominal: soft, other - morbidly obese. Diffuse discomfort to palpation reported. No obvious rebound or peritoneal signs. Rectal Exam: deferred Back Exam: no CVA tenderness, no vertebral tenderness Extremity: no pedal edema, normal capillary refill, other - right lower extremity in cast. Neurologic: finding fastener II-XII nml as tested, alert, normal mood/affect - affect is fairly flat, oriented x 3 Skin Exam: normal color Comments: Vital Signs - 24 hr 08/06/18 08:33 Temperature 98.8 F Pulse Rate [ 71 Left Radial] Respiratory 18 Rate Blood Pressure 160/88 [Left Arm] O2 Sat by Pulse 99 Oximetry Progress - Progress Progress: 08/06/18 10:28 the patient is a 38-year-old female presenting to the emergency room with her cyclical nausea and vomiting. She actually does appear fairly well- hydrated but did receive a liter of IV fluids to be sure. No evidence of any recurrence of pancreatitis at this time. The patient is going to have a scopolamine patch placed which she can take off in 3 days or sooner if it is making her too drowsy or dizzy. 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 She needs to keep follow-up with her primary care doctor in the next day or 2. She does have a small yeast infection and did receive a dose of Diflucan here today. ER warnings were given. Keep follow-up with primary care doctor. - Results/Orders Results/Orders: acute abdominal series fails to show any acute pathology. No evidence of any obstruction. Chronic findings are present. Laboratory Tests 08/06/18 08/06/18 08/06/18 08:50 08:50 08:50 WBC 8.9 RBC 4.47 Hgb 12.7 Hct 39.4 MCV 88.3 MCH 28.4 MCHC 32.1 L RDW 15.9 H Plt Count 318 MPV 8.3 Absolute Neuts (auto) 8.10 H Absolute Lymphs (auto) 0.50 L Absolute Monos (auto) 0.40 Absolute Eos (auto) 0.00 Absolute Basos (auto) 0.10 Neutrophils % 90.1 H Lymphocytes % 5.1 L Monocytes % 4.2 Eosinophils % 0.0 L Basophils % 0.6 Sodium 133 L Potassium 3.8 Chloride 100 L Carbon Dioxide 21 Anion Gap 15.8 BUN 16 Creatinine 0.95 BUN/Creatinine Ratio 16.8 Random Glucose 111 H Serum Osmolality 268.3 L Lactic Acid 1.7 Calcium 8.9 Total Bilirubin 0.2 AST 23 ALT 26 Alkaline Phosphatase 73 Serum Total Protein 7.1 Albumin 4.0 Globulin 3.1 Albumin/Globulin Ratio 1.3 Amylase 78 Lipase 33 Urine Color Urine Appearance Urine pH Ur Specific [place] Urine Protein Urine Glucose (UA) Urine Ketones Urine Blood Urine Nitrite Urine Bilirubin Urine Urobilinogen Ur Leukocyte Esterase Urine RBC Urine WBC Ur Epithelial Cells Urine Bacteria Urine Yeast Urine HCG, Qual 08/06/18 08/06/18 09:46 09:46 WBC RBC Hgb Hct MCV MCH MCHC RDW Plt Count MPV Absolute Neuts (auto) Absolute Lymphs (auto) Absolute Monos (auto) Absolute Eos (auto) Absolute Basos (auto) Neutrophils % Lymphocytes % Monocytes % Eosinophils % Basophils % Sodium Potassium Chloride Carbon Dioxide Anion Gap BUN Creatinine BUN/Creatinine Ratio Random Glucose Serum Osmolality Lactic Acid Calcium Total Bilirubin AST ALT Alkaline Phosphatase Serum Total Protein Albumin Globulin Albumin/Globulin Ratio Amylase Lipase Urine Color Yellow Urine Appearance Clear Urine pH 5.0 Ur Specific [place] 1.020 Urine Protein Negative Urine Glucose (UA) Negative Urine Ketones Negative Urine Blood Negative Urine Nitrite Negative Urine Bilirubin Negative Urine Urobilinogen 0.2 Ur Leukocyte Esterase Negative Urine RBC 0 Urine WBC 0-1 Ur Epithelial Cells 3-5 Urine Bacteria Rare Urine Yeast 1+ budding H Urine HCG, Qual Negative Departure - Departure Clinical Impression: Yeast infection Cyclical vomiting with nausea Qualifiers: Vomiting Intractability: non-intractable Qualified Code(s): G43.A0 - Cyclical vomiting, not intractable Disposition: Discharge to Home or Self Care Condition: Fair Departure Forms: ED Discharge - Pt. Copy, Patient Portal Self Enrollment Instructions: DI for Abdominal Pain-Adult Diet: bland diet, diabetic diet Activity: increase activity as tolerated Referrals: MAMIE SOLIS [Primary Care Provider] - 1-2 Weeks Home Medications: Ambulatory Orders Alprazolam [Xanax] 2 mg PO TID 04/14/18 Amphetamine-Dextroamphetamine [Adderall 30 mg] 30 mg PO QID 04/14/18 Clonidine HCl 0.2 mg PO Q1H PRN 04/14/18 Duloxetine HCl [Cymbalta] mg PO DAILY 04/14/18 Lisinopril 40 mg PO DAILY 04/14/18 Lurasidone HCl [Latuda] 120 mg PO DAILY 04/14/18 Metoprolol Tartrate [Lopressor] 50 mg PO DAILY 04/14/18 Rizatriptan Benzoate [Maxalt] 10 mg PO PRN PRN 04/14/18 Temazepam [Restoril] 30 mg PO BEDTIME 04/14/18 Promethazine Tab [Phenergan Tablet] 25 mg PO Q4H PRN #30 tab 04/16/18 Prochlorperazine Supp [Compazine Suppository] 25 mg MA BID PRN #14 sup 04/17/18 Additional Instructions: the patient is a 38-year-old female presenting to the emergency room with her cyclical nausea and vomiting. She actually does appear fairly well- hydrated but did receive a liter of IV fluids to be sure. No evidence of any recurrence of pancreatitis at this time. laboratory work and x-ray are reassuring. The patient is going to have a scopolamine patch placed which she can take off in 3 days or sooner if it is making her too drowsy or dizzy. 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 She needs to keep follow-up with her primary care doctor in the next day or 2. She does have a small yeast infection and did receive a dose of Diflucan here today. ER warnings were given. Keep follow-up with primary care doctor and gastroenterology.
--- NOTE | 2018-08-06 09:07 | RAD ---
EXAM DESCRIPTION: Abdomen Series CLINICAL HISTORY: 38 years Female, recurrent nv COMPARISON: April 14, 2018 FINDINGS: A dual-lead cardiac pacemaker remains in place. A left-sided Mediport device and SIX COL[employer] PRESS OPERATOR shunt catheter are also unchanged from the previous exam. The cardiomediastinal silhouette is unremarkable. No airspace consolidation or pleural effusion. No pneumothorax or acute fracture. IMPRESSION: Negative exam. Electronically signed by: Garett Uribe MD 08/06/2018 9:03 AM [employer]ESS [employer]GER
[2018-08-06] MEDS ORDERED: BUTORPHANOL TARTRATE 2 MG/ML VIAL IM ONE (09:12)
[2018-08-06] MEDS ORDERED: diphenhydrAMINE HCL 25 MG CAP PO ONE (09:14)
[2018-08-06] MEDS ORDERED: FLUCONAZOLE 100 MG TAB PO ONE (10:19)
[2018-08-06] MEDS ORDERED: SCOPOLAMINE PATCH 1.5MG 1 EA TD ONE (10:19)
[2018-08-06] MEDS ORDERED: ALUM & MAG HYDROX-SIMETHICONE 30 ML, LIDOCAINE VISCOUS 2% 15 ML PO ONE ×2 (10:25)
[2018-08-06] MEDS ORDERED: ALUM & MAG HYDROX-SIMETHICONE 30 ML UD ONE (10:36)
[2018-08-06] MEDS ORDERED: LIDOCAINE HCL 2% (MOUTH-THROAT) 15 ML UD ONE (10:36)
[2018-08-06] MEDS ORDERED: HEPARIN SODIUM 100 U/ML 5 ML SYG IV ONE (10:46)
[2018-08-06 10:56] VITALS: BP 146/85; TEMP 98.2; O2SAT 96
== END 2018-08-06 10:59 | disposition home or self-care (01) ==
LOC: ER 08:10
DX: G43.A0 Cyclical vomiting, in migraine, not intractable (principal); B37.3 Candidiasis of vulva and vagina; I51.9 Heart disease, unspecified; I10 Essential (primary) hypertension; Z95.0 Presence of cardiac pacemaker; Z87.891 Personal history of nicotine dependence; Z79.899 Other long term (current) drug therapy; Z88.8 Allergy status to other drugs, medicaments and biological substances; Z88.2 Allergy status to sulfonamides; Z91.040 Latex allergy status

== ENCOUNTER 2018-08-15 14:08 | Emergency (ER) | payer MEDICARE, OTHER ==
--- NOTE | 2018-08-15 14:22 | ED.PDOC ---
History of Present Illness - General Chief Complaint: Chest Pain/LA Stated Complaint: chest pain Time Seen by Provider: 08/15/18 14:15 Source: patient, EMS Exam Limitations: no limitations - History of Present Illness Initial Comments: Farhana Stanley 38 y/o female with history of SVT and placed on pacemaker 2010 stated that she had dull chest pain about 3 hours ago while at home watching TV stated radiates to left arm felt nauseated no actual vomiting,no diaphoresis,no SOB.She was seen at [facility] last night for nausea/vomiting and was sent home.Had multiple ER visit here and records showed that she has history of narcotic drug seeking behavior.Also on her arrival was complaining of chest pains I told her that i will give her NTG mentioned she has allergies and prefers morphine but records dont show alllergies to NTG stating makes her migraines worse Medical records obtained from [facility] after admission for obs on 10 Aug 2018 showed she was admitted for syncopal episodes and chest pain head CT and serial cardiac enzymes did not show myocardial injury and also was seen again yesterday night but no records sent for N/V Timing/Duration: 1-3 hours Severity/Quality: moderate, dull Location: central Chest Pain Radiation: arms Activities at Onset: rest Prior Chest Pain/Cardiac Workup: other - pacemaker with svt Improving Factors: nothing Worsening Factors: nothing Aspirin Treatment Today: 325 mg x 1 Associated Symptoms: nausea/vomiting Allergies/Adverse Reactions: Allergies Diltiazem [From Cardizem CD] Allergy (Verified 08/06/18 08:55) Fentanyl Allergy (Verified 08/06/18 08:55) Ketorolac Tromethamine [From Toradol] Allergy (Verified 08/06/18 08:55) Latex Allergy (Verified 08/06/18 08:55) Ondansetron [From Zofran] Allergy (Verified 08/06/18 08:55) Pregabalin [From Lyrica] Allergy (Verified 08/06/18 08:55) Sulfa Antibiotics Allergy (Verified 08/06/18 08:55) Home Medications: Ambulatory Orders Alprazolam [Xanax] 2 mg PO TID 04/14/18 Amphetamine-Dextroamphetamine [Adderall 30 mg] 30 mg PO QID 04/14/18 Clonidine HCl 0.2 mg PO Q1H PRN 04/14/18 Duloxetine HCl [Cymbalta] mg PO DAILY 04/14/18 Lisinopril 40 mg PO DAILY 04/14/18 Lurasidone HCl [Latuda] 120 mg PO DAILY 04/14/18 Metoprolol Tartrate [Lopressor] 50 mg PO DAILY 04/14/18 Rizatriptan Benzoate [Maxalt] 10 mg PO PRN PRN 04/14/18 Temazepam [Restoril] 30 mg PO BEDTIME 04/14/18 Promethazine Tab [Phenergan Tablet] 25 mg PO Q4H PRN #30 tab 04/16/18 Prochlorperazine Supp [Compazine Suppository] 25 mg RI BID PRN #14 sup 04/17/18 Review of Systems - Review of Systems Constitutional: States: no symptoms reported EENTM: States: no symptoms reported Respiratory: States: no symptoms reported Cardiology: States: see HPI, chest pain Gastrointestinal/Abdominal: States: no symptoms reported Genitourinary: States: no symptoms reported Musculoskeletal: States: no symptoms reported Skin: States: no symptoms reported Neurological: States: no symptoms reported Endocrine: States: no symptoms reported All other Systems: Reviewed and Negative, No Change from Baseline Past Medical History (General) - Patient Medical History Hx Seizures: Yes - When given lyrica Hx Stroke: No Hx Dementia: No Hx Asthma: No Hx of COPD: No Hx Cardiac Disorders: Yes Hx Congestive Heart Failure: No Hx Pacemaker: Yes Hx Hypertension: Yes Hx Thyroid Disease: No Hx Diabetes: No Hx Gastroesophageal Reflux: No Hx Renal Disease: No Hx of HIV: No Hx MRSA: No Surgical History: appendectomy, cholecystectomy, other - Vaccination History Hx Tetanus, Diphtheria Vaccination: No Hx Influenza Vaccination: Yes Hx Pneumococcal Vaccination: Yes - Social History Hx Tobacco Use: Yes Hx Alcohol Use: No Hx Substance Use: No Hx Substance Use Treatment: No Hx Physical Abuse: No Hx Emotional Abuse: No - Activities of Daily Living Patient Lives Alone: No - Female History Patient is a Female of Child Bearing Age (10 -59 yrs old): Yes Hx Last Menstrual Period: 04/09/16 Patient : No - Pt denies sexual intercourse for 2.5 years Family Medical History - Family History Mother Family History: No Known Physical Exam - Physical Exam General Appearance: Alert, Comfortable, No apparent distress Eyes, Ears, Nose, Throat Exam: normal ENT inspection, TMs normal Neck: non-tender, supple, normal inspection Respiratory: lungs clear, normal breath sounds, no respiratory distress Cardiovascular/Chest: normal peripheral pulses, regular rate, rhythm, no gallop, no murmur Peripheral Pulses: radial,right: 2+, radial,left: 2+ Gastrointestinal/Abdominal: normal bowel sounds, non tender, soft, no organomegaly Extremity: no pedal edema, no calf tenderness Neurologic: alert, oriented x 3 Skin Exam: normal color, warm/dry Progress - Progress Progress: 08/15/18 18:03 Last Vital Signs Temp 97.9 F 08/15/18 14:13 Pulse 70 08/15/18 17:09 Resp 16 08/15/18 17:09 BP 120/74 08/15/18 16:09 Pulse Ox 98 08/15/18 17:09 Vital Signs - 8 hr 08/15/18 08/15/18 08/15/18 14:13 15:13 16:09 Temperature 97.9 F Pulse Rate [ 70 70 69 Apical] Respiratory 18 18 20 Rate Blood Pressure 113/82 118/68 120/74 [Left Arm] O2 Sat by Pulse 98 97 99 Oximetry 08/15/18 17:09 Temperature Pulse Rate [ 70 Apical] Respiratory 16 Rate Blood Pressure [Left Arm] O2 Sat by Pulse 98 Oximetry - Results/Orders Results/Orders: 08/15/18 14:23 IV Care:Saline Lock per Protoc QSHIFT URINE DRUG SCREEN, 7 ASSAY Stat URINALYSIS Stat 08/15/18 14:45 EKG STAT 08/15/18 17:16 Magnesium Sulfate Premix 2Gm 2 gm Premix Bag 1 bag IVPB ONCE Laboratory Results - last 24 hr 08/15/18 08/15/18 08/15/18 14:49 14:49 16:23 WBC 9.7 RBC 4.14 L Hgb 11.9 L Hct 36.7 MCV 88.5 MCH 28.7 MCHC 32.4 L RDW 16.0 H Plt Count 292 MPV 7.8 Absolute Neuts (auto) 6.80 Absolute Lymphs (auto) 2.00 Absolute Monos (auto) 0.60 Absolute Eos (auto) 0.20 Absolute Basos (auto) 0.10 Neutrophils % 69.7 Lymphocytes % 21.0 Monocytes % 6.2 Eosinophils % 2.5 Basophils % 0.6 PT 9.3 INR 0.93 PTT (SP) 23.9 D-Dimer, Quantitative 0.78 H* Sodium 133 L Potassium 3.9 Chloride 104 Carbon Dioxide 20 L Anion Gap 12.9 BUN 21 H Creatinine 0.79 BUN/Creatinine Ratio 26.6 H Random Glucose 83 Serum Osmolality 268.5 L Calcium 8.3 L Magnesium 1.5 L Total Bilirubin 0.5 Direct Bilirubin < 0.1 Indirect Bilirubin 0.4 AST 17 ALT 20 Alkaline Phosphatase 70 Creatine Kinase 28 CK-MB (CK-2) 0.5 CK-MB (CK-2) % Not Reportable Troponin I < 0.02 < 0.02 Serum Total Protein 6.3 L Albumin 3.6 Discuss all test result with patient including CTA-chest -no acute findings - EKG/XRAY/CT Comments: HR-[address] Ordered: Yes - CTA- chest no acute PE or other abnormalities Departure - Departure Clinical Impression: D-dimer, elevated Chest pain Qualifiers: Chest pain type: unspecified Qualified Code(s): R07.9 - Chest pain, unspecified Time of Disposition: 20:21 Disposition: Discharge to Home or Self Care Condition: Fair Departure Forms: ED Discharge - Pt. Copy, Patient Portal Self Enrollment Instructions: DI for Chest Pain Referrals: MAMIE SOLIS [Primary Care Provider] - 1-2 Weeks Home Medications: Ambulatory Orders Alprazolam [Xanax] 2 mg PO TID 04/14/18 Amphetamine-Dextroamphetamine [Adderall 30 mg] 30 mg PO QID 04/14/18 Clonidine HCl 0.2 mg PO Q1H PRN 04/14/18 Duloxetine HCl [Cymbalta] mg PO DAILY 04/14/18 Lisinopril 40 mg PO DAILY 04/14/18 Lurasidone HCl [Latuda] 120 mg PO DAILY 04/14/18 Metoprolol Tartrate [Lopressor] 50 mg PO DAILY 04/14/18 Rizatriptan Benzoate [Maxalt] 10 mg PO PRN PRN 04/14/18 Temazepam [Restoril] 30 mg PO BEDTIME 04/14/18 Promethazine Tab [Phenergan Tablet] 25 mg PO Q4H PRN #30 tab 04/16/18 Prochlorperazine Supp [Compazine Suppository] 25 mg RI BID PRN #14 sup 04/17/18 Additional Instructions: Continue with al pain medications;follow up with primary Md 08 18 2018 for recheck;continue with all home medications
[2018-08-15] MEDS ORDERED: LACTATED RINGERS 1,000 ML IVS ONE (14:23)
[2018-08-15] MEDS ORDERED: diphenhydrAMINE HCL 50 MG/ML VIAL IV ONE ×2 (14:33→17:44)
[2018-08-15] MEDS ORDERED: PROMETHAZINE HCL INJ 25 MG/ML VIAL IM ONE (14:33)
[2018-08-15] MEDS ORDERED: MAGNESIUM SULFATE PREMIX 2GM 2 GM in PREMIX BAG 1 BAG IVPB ONE (17:16)
[2018-08-15] MEDS ORDERED: MAGNESIUM SULFATE PREMIX 2GM 50 ML IVPB ONE (17:24)
[2018-08-15] MEDS ORDERED: MORPHINE SULFATE INJ 10 MG/ML VIAL IV ONE (17:44)
[2018-08-15 17:58] VITALS: O2SAT 98
[2018-08-15 20:11] VITALS: TEMP 97.8
--- NOTE | 2018-08-15 20:12 | CT ---
PROCEDURE: CTA Chest CLINICAL HISTORY: 38 years Female chest pain/elevated d dimer COMPARISON: None. TECHNIQUE: Contiguous axial images were obtained through the chest during the infusion of IV contrast. Reformatted images obtained. MIP reformatted images obtained. This exam was performed according to our department optimization program which includes automated exposure control, adjustment of the mA and/or kv according to patient size and/or use of iterative reconstruction technique. FINDINGS: The gallbladder is surgically absent. The heart is mildly enlarged. There is mild bilateral posterior pleural thickening. The lungs are clear. No pneumothorax is seen. Heart size is normal. No lymphadenopathy. No PE is seen. No evidence of aortic aneurysm. No other significant abnormality. IMPRESSION: Mild cardiomegaly. Mild posterior pleural thickening. No evidence of pulmonary embolus. Electronically signed by: Marco Garner 08/15/2018 8:09 PM HEAD MECHANIC
[2018-08-15] MEDS ORDERED: diphenhydrAMINE HCL 50 MG/ML VIAL IM ONE (20:19)
[2018-08-15 20:34] VITALS: BP 141/86
== END 2018-08-15 20:36 | disposition home or self-care (01) ==
LOC: ER 14:08
DX: R07.9 Chest pain, unspecified (principal); R79.89 Other specified abnormal findings of blood chemistry; R11.2 Nausea with vomiting, unspecified; I51.9 Heart disease, unspecified; I10 Essential (primary) hypertension; Z95.0 Presence of cardiac pacemaker; Z87.891 Personal history of nicotine dependence; Z79.899 Other long term (current) drug therapy; Z91.040 Latex allergy status; Z88.2 Allergy status to sulfonamides; Z88.8 Allergy status to other drugs, medicaments and biological substances
CPT/HCPCS: 36415; 71275; 80048; 80076; 82550; 82553; 84484; 85025; 85379; 85610; 85730; 93005; J1200; J2270; J2550; J3475; J7120

== ENCOUNTER 2019-02-02 08:18 | Emergency (ER) | payer OTHER, MEDICARE ==
[2019-02-02] MEDS ORDERED: PROMETHAZINE HCL INJ 25 MG in SODIUM CHLORIDE 0.9% 50ML 50 ML IVPB ONE (08:37)
[2019-02-02] MEDS ORDERED: SODIUM CHLORIDE 0.9% 1000ML 1,000 ML IVS ONE (08:37)
[2019-02-02] MEDS ORDERED: SODIUM CHLORIDE 0.9% 50ML 50 ML ONE (09:10)
[2019-02-02] MEDS ORDERED: PROMETHAZINE HCL INJ 25 MG/ML VIAL ONE (09:10)
[2019-02-02] MEDS ORDERED: BUTORPHANOL TARTRATE 2 MG/ML VIAL IV ONE ×2 (09:31→10:28)
--- NOTE | 2019-02-02 09:38 | RAD ---
Procedure: XR ABDOMEN SUPINE AND ERECT WITH CHEST (ABD ACUTE SERIES) Exam Date: 02/02/2019 Ordering Provider: Randall Aranda Clinical Indication: nvd Comparison: 08/06/2018 Findings: Upright chest x-ray: Right subclavian pacer with leads stable in position. Left chest portacatheter with tip stable in position. Shunt tubing extending to the abdomen with tip in the right lower quadrant. Cardiomediastinal silhouette is unremarkable. Pulmonary vasculature is unremarkable. There is no consolidation or effusion. No pneumothorax. Flat and upright abdomen: Surgical clips in the right upper quadrant. Nonobstructive bowel gas pattern. There is no pneumoperitoneum. There are no suspicious calcifications. No acute osseous abnormalities. Postsurgical changes in the lumbosacral spine. Impression: 1. No acute findings. Electronically signed by: Osbaldo Castaneda MD 02/02/2019 9:36 AM CDT
[2019-02-02] MEDS ORDERED: SCOPOLAMINE PATCH 1.5MG 1 EA TD ONE (10:11)
[2019-02-02] MEDS ORDERED: MAGNESIUM HYDROXIDE 30 ML UD PO ONE (10:28)
--- NOTE | 2019-02-02 10:31 | ED.PDOC ---
History of Present Illness - General Chief Complaint: Abdominal Pain Time Seen by Provider: 02/02/19 08:26 Source: patient Exam Limitations: no limitations - History of Present Illness Initial Comments: the patient is a 38-year-old female presenting to the emergency room after reportedly having some increasing nausea and vomiting over the last couple of days along with a couple of episodes of diarrhea. No fever. She does have a very long-standing history of cyclical nausea and vomiting as well as intermittent pancreatitis. She also has a very marked history of drug-seeking. no chest pain. No syncope or near-syncope. No rash. She has been compliant with her medications according to her. In the 2 hours if the patient has been here she has not had any episodes of vomiting or retching. In fact she has spent most of the time on her cellular phone.the patient does not appear dehydrated. Timing/Duration: other - 2 days Severity: mild Improving Factors: nothing Worsening Factors: eating Associated Symptoms: loss of appetite, malaise, nausea/vomiting Allergies/Adverse Reactions: Allergies Nitroglycerin Allergy (Severe, Verified 02/02/19 08:26) Metoclopramide [From Reglan] Allergy (Intermediate, Verified 02/02/19 08:26) Other Diltiazem [From Cardizem CD] Allergy (Verified 08/06/18 08:55) Fentanyl Allergy (Verified 08/06/18 08:55) Ketorolac Tromethamine [From Toradol] Allergy (Verified 08/06/18 08:55) Latex Allergy (Verified 08/06/18 08:55) Ondansetron [From Zofran] Allergy (Verified 08/06/18 08:55) Sulfa Antibiotics Allergy (Verified 08/06/18 08:55) Home Medications: Ambulatory Orders Alprazolam [Xanax] 2 mg PO TID 04/14/18 Amphetamine-Dextroamphetamine [Adderall 30 mg] 30 mg PO QID 04/14/18 Clonidine HCl [Clonidine Hydrochloride] 0.2 mg PO TID 04/14/18 Duloxetine HCl [Cymbalta] 120 mg PO DAILY 04/14/18 Lisinopril 40 mg PO DAILY 04/14/18 Metoprolol Tartrate [Lopressor] 50 mg PO BID 04/14/18 Rizatriptan Benzoate [Maxalt] 10 mg PO PRN PRN 04/14/18 Temazepam [Restoril] 15 mg PO BEDTIME 04/14/18 Promethazine Tab [Phenergan Tablet] 25 mg PO Q4H PRN #30 tab 04/16/18 Atorvastatin Calcium [Lipitor] 10 mg PO DAILY 02/02/19 Carisoprodol 350 mg PO BID 02/02/19 Medroxyprogesterone Acetate (A [Depo-Provera] 400 mg IM Q3M 02/02/19 Promethazine Tab [Phenergan Tablet] 25 mg PO Q6H PRN 02/02/19 Trazodone HCl [Trazodone Hydrochloride] 300 mg PO BEDTIME PRN 02/02/19 Zolpidem Tartrate [Ambien] 10 mg PO DAILY 02/02/19 Review of Systems - Review of Systems Constitutional: States: malaise EENTM: States: no symptoms reported Respiratory: States: no symptoms reported Cardiology: States: no symptoms reported Gastrointestinal/Abdominal: States: abdominal pain, diarrhea, nausea, vomiting Genitourinary: States: no symptoms reported Musculoskeletal: States: see HPI - chronic pain Skin: States: no symptoms reported Neurological: States: anxiety Endocrine: States: no symptoms reported All other Systems: No Change from Baseline Past Medical History (General) - Patient Medical History Hx Seizures: Yes - When given lyrica Hx Stroke: No Hx Dementia: No Hx Asthma: No Hx of COPD: No Hx Cardiac Disorders: Yes Hx Congestive Heart Failure: No Hx Pacemaker: Yes Hx Hypertension: Yes Hx Thyroid Disease: No Hx Diabetes: No Hx Gastroesophageal Reflux: No Hx Renal Disease: No Hx of HIV: No Hx MRSA: No Surgical History: appendectomy, cholecystectomy, pacemaker - Vaccination History Hx Tetanus, Diphtheria Vaccination: No Hx Influenza Vaccination: Yes Hx Pneumococcal Vaccination: Yes - Social History Hx Tobacco Use: Yes Hx Alcohol Use: No Hx Substance Use: No Hx Substance Use Treatment: No Hx Physical Abuse: No Hx Emotional Abuse: No - Female History Hx Last Menstrual Period: 04/09/16 Patient : No Family Medical History - Family History Mother Family History: No Known Physical Exam - Physical Exam General Appearance: Alert, Comfortable, No apparent distress Eye Exam: bilateral normal Ears, Nose, Throat: hearing grossly normal, other - poor dentition Neck: full range of motion, supple Respiratory: lungs clear, normal breath sounds, no respiratory distress, no accessory muscle use Cardiovascular/Chest: normal peripheral pulses, regular rate, rhythm, no edema Peripheral Pulses: radial,right: 2+, radial,left: 2+, dorsalis pedis,right: 2+, dorsalis pedis,left: 2+ Gastrointestinal/Abdominal: soft, other - no rebound or peritoneal signs. No obvious palpable mass. Mild epigastric discomfort palpation. Rectal Exam: deferred Back Exam: no CVA tenderness, no vertebral tenderness Extremity: normal range of motion, non-tender, normal inspection, no pedal edema, normal capillary refill Neurologic: economic specialist II-XII nml as tested, alert, oriented x 3 Skin Exam: normal color Comments: Vital Signs - 24 hr 02/02/19 02/02/19 08:44 09:00 Temperature 98.9 F Pulse Rate [ 70 70 left brachial] Respiratory 22 70 H Rate Blood Pressure 162/90 147/99 [left brachial] O2 Sat by Pulse 99 97 Oximetry Progress - Progress Progress: 02/02/19 10:32 the patient is a 38-year-old female presenting to the emergency room secondary to nausea and vomiting and diarrhea. The patient does have long- standing chronic gastrointestinal issues with frequent nausea and vomiting. She received some nausea medications and pain medications. She is having a scopolamine patch placed for the next 3 days to help reduce nausea. She needs to try to increase her fluid intake. Additionally on the x-ray she does appear to have some moderate constipation of the transverse colon. This may be worsening her symptoms. She does need to take a dose of milk of magnesia tomorrow, she has been given a dose today here already. Laboratory work is reassuring. Routine follow-up with primary care doctor. She did receive a liter of IV fluids for possibly mild dehydration here today. ER warnings were given. - Results/Orders Results/Orders: Laboratory Results - last 24 hr 02/02/19 02/02/19 02/02/19 09:07 09:07 09:20 WBC RBC Hgb Hct MCV MCH MCHC RDW Plt Count MPV Absolute Neuts (auto) Absolute Lymphs (auto) Absolute Monos (auto) Absolute Eos (auto) Absolute Basos (auto) Neutrophils % Lymphocytes % Monocytes % Eosinophils % Basophils % Sodium 137 Potassium 3.5 L Chloride 106 Carbon Dioxide 22 Anion Gap 12.5 BUN 10 Creatinine 0.75 BUN/Creatinine Ratio 13.3 Random Glucose 88 Serum Osmolality 272.3 L Lactic Acid Calcium 8.4 Magnesium 1.7 L Total Bilirubin 0.4 AST 15 ALT 13 Alkaline Phosphatase 66 Serum Total Protein 6.0 L Albumin 3.3 Globulin 2.7 Albumin/Globulin Ratio 1.2 Amylase 82 Lipase 37 Urine Color Yellow Urine Appearance Clear Urine pH 6.5 Ur Specific [place] 1.010 Urine Protein Negative Urine Glucose (UA) Negative Urine Ketones Negative Urine Blood Negative Urine Nitrite Negative Urine Bilirubin Negative Urine Urobilinogen 0.2 Ur Leukocyte Esterase Negative Urine RBC 0 Urine WBC 0-1 Ur Epithelial Cells 1-3 Amorphous Sediment Trace Urine Bacteria 0 Urine HCG, Qual Negative 02/02/19 02/02/19 09:20 09:20 WBC 9.2 RBC 3.72 L Hgb 10.9 L Hct 32.3 L MCV 86.9 MCH 29.4 MCHC 33.8 RDW 15.5 H Plt Count 285 MPV 8.3 Absolute Neuts (auto) 5.90 Absolute Lymphs (auto) 1.90 Absolute Monos (auto) 0.70 Absolute Eos (auto) 0.60 H Absolute Basos (auto) 0.10 Neutrophils % 64.5 Lymphocytes % 20.9 Monocytes % 7.5 Eosinophils % 6.0 H Basophils % 1.1 Sodium Potassium Chloride Carbon Dioxide Anion Gap BUN Creatinine BUN/Creatinine Ratio Random Glucose Serum Osmolality Lactic Acid 1.1 Calcium Magnesium Total Bilirubin AST ALT Alkaline Phosphatase Serum Total Protein Albumin Globulin Albumin/Globulin Ratio Amylase Lipase Urine Color Urine Appearance Urine pH Ur Specific [place] Urine Protein Urine Glucose (UA) Urine Ketones Urine Blood Urine Nitrite Urine Bilirubin Urine Urobilinogen Ur Leukocyte Esterase Urine RBC Urine WBC Ur Epithelial Cells Amorphous Sediment Urine Bacteria Urine HCG, Qual acute abdominal series appears benign. Departure - Departure Clinical Impression: Mild dehydration Cyclical vomiting with nausea Qualifiers: Vomiting Intractability: non-intractable Qualified Code(s): G43.A0 - Cyclical vomiting, not intractable Constipation Qualifiers: Constipation type: unspecified constipation type Qualified Code(s): K59.00 - Constipation, unspecified Disposition: Discharge to Home or Self Care Condition: Fair Departure Forms: ED Discharge - Pt. Copy, Patient Portal Self Enrollment Diet: bland diet Activity: increase activity as tolerated Referrals: MAMIE SOLIS [Primary Care Provider] - 1-5 Days Home Medications: Ambulatory Orders Alprazolam [Xanax] 2 mg PO TID 10/29/18 Amphetamine-Dextroamphetamine [Adderall 30 mg] 30 mg PO QID 04/14/18 Clonidine HCl [Clonidine Hydrochloride] 0.2 mg PO TID 04/14/18 Duloxetine HCl [Cymbalta] 120 mg PO DAILY 04/14/18 Lisinopril 40 mg PO DAILY 04/14/18 Metoprolol Tartrate [Lopressor] 50 mg PO BID 04/14/18 Rizatriptan Benzoate [Maxalt] 10 mg PO PRN PRN 04/14/18 Temazepam [Restoril] 15 mg PO BEDTIME 04/14/18 Promethazine Tab [Phenergan Tablet] 25 mg PO Q4H PRN #30 tab 04/16/18 Atorvastatin Calcium [Lipitor] 10 mg PO DAILY 02/02/19 Carisoprodol 350 mg PO BID 02/02/19 Medroxyprogesterone Acetate (A [Depo-Provera] 400 mg IM Q3M 02/02/19 Promethazine Tab [Phenergan Tablet] 25 mg PO Q6H PRN 02/02/19 Trazodone HCl [Trazodone Hydrochloride] 300 mg PO BEDTIME PRN 02/02/19 Zolpidem Tartrate [Ambien] 10 mg PO DAILY 02/02/19 Additional Instructions: the patient is a 38-year-old female presenting to the emergency room secondary to nausea and vomiting and diarrhea. The patient does have long- standing chronic gastrointestinal issues with frequent nausea and vomiting. She received some nausea medications and pain medications. She is having a scopolamine patch placed for the next 3 days to help reduce nausea. She needs to try to increase her fluid intake. Additionally on the x-ray she does appear to have some moderate constipation of the transverse colon. This may be worsening her symptoms. She does need to take a dose of milk of magnesia tomorrow, she has been given a dose today here already. Laboratory work is reassuring. Routine follow-up with primary care doctor. She did receive a liter of IV fluids for possibly mild dehydration here today. ER warnings were given.
[2019-02-02] MEDS ORDERED: HEPARIN SODIUM 100 U/ML 5 ML SYG IV ONE (10:43)
[2019-02-02 11:17] VITALS: BP 156/100; TEMP 98.5; O2SAT 98
== END 2019-02-02 11:17 | disposition home or self-care (01) ==
LOC: ER 08:18
DX: G43.A0 Cyclical vomiting, in migraine, not intractable (principal); K59.00 Constipation, unspecified; E86.0 Dehydration; I51.9 Heart disease, unspecified; I10 Essential (primary) hypertension; Z95.0 Presence of cardiac pacemaker; Z87.891 Personal history of nicotine dependence; Z90.49 Acquired absence of other specified parts of digestive tract; Z88.8 Allergy status to other drugs, medicaments and biological substances; Z88.2 Allergy status to sulfonamides; Z91.040 Latex allergy status; Z88.5 Allergy status to narcotic agent

== ENCOUNTER 2019-04-22 12:53 | Emergency (ER) | payer MEDICARE, OTHER ==
[2019-04-22] MEDS ORDERED: SODIUM CHLORIDE 0.9% 1000ML 1,000 ML IVS ONE (13:21)
[2019-04-22] MEDS ORDERED: PROMETHAZINE HCL INJ 12.5 MG in SODIUM CHLORIDE 0.9% 50ML 50 ML IVPB ONE (13:21)
--- NOTE | 2019-04-22 13:25 | ED.PDOC ---
History of Present Illness - General Chief Complaint: Abdominal Pain Stated Complaint: epigastric pain,vomiting Time Seen by Provider: 04/22/19 13:11 Information Source: patient, RN notes reviewed, Vital Signs reviewed, old records Exam Limitations: no limitations - History of Present Illness Initial Comments: 39 yo female with PMH of pancreatitis and cyclic vomiting syndrome presents with nausea, vomiting and epigastric pain since 1600 yesterday. Reports unable to hold anything down today. Denies fever, but has had 2 episodes of diarrhea today. H/O appy and lap tiera. Pt has had similar symptoms many times in the past and seen in ED for this. Review of Systems - Review of Systems Constitutional: Denies: chills, fever, weakness EENTM: Denies: nose congestion, throat pain Respiratory: Denies: cough, short of breath, wheezing Cardiology: Denies: chest pain, edema, palpitations, syncope Gastrointestinal/Abdominal: States: abdominal pain, diarrhea, nausea, vomiting Musculoskeletal: Denies: back pain, joint pain Skin: Denies: change in color, rash All other Systems: Reviewed and Negative Past Medical History (General) - Patient Medical History Hx Seizures: Yes - When given lyrica Hx Stroke: No Hx Dementia: No Hx Asthma: No Hx of COPD: No Hx Cardiac Disorders: Yes Hx Congestive Heart Failure: No Hx Pacemaker: Yes Hx Hypertension: Yes Hx Thyroid Disease: No Hx Diabetes: No Hx Gastroesophageal Reflux: No Hx Renal Disease: No Hx of HIV: No Hx MRSA: No - Vaccination History Hx Tetanus, Diphtheria Vaccination: No Hx Influenza Vaccination: Yes Hx Pneumococcal Vaccination: Yes - Social History Hx Tobacco Use: Yes Hx Alcohol Use: No Hx Substance Use: No Hx Substance Use Treatment: No Hx Physical Abuse: No Hx Emotional Abuse: No - Female History Hx Last Menstrual Period: 04/09/16 Patient : No Family Medical History - Family History Mother Family History: No Known Physical Exam - Physical Exam General Appearance: Alert, Comfortable, No apparent distress, Other - lying on gurney Neck: non-tender, full range of motion, supple Respiratory: chest non-tender, lungs clear, normal breath sounds, no respiratory distress, no accessory muscle use Cardiovascular/Chest: regular rate, rhythm, no edema Gastrointestinal/Abdominal: soft - mild TTP epigastric area. No guarding or rigidity Back Exam: normal inspection, no CVA tenderness, no vertebral tenderness Extremity: normal range of motion, non-tender, no pedal edema Neurologic: alert, normal mood/affect Skin Exam: warm/dry Progress - Progress Progress: 04/22/19 14:48 Pt presents with 1 day h/o upper abdominal pain and vomiting. Abdominal exam is benign and labs and VS are reassuring. She has had no vomiting in ED. Abdominal xray shows no sign of obstruction. Pt declines to give urine sample for testing and requesting to go home. I will DC home on Phenergan prn and f/u with pcp in 1-2 days for recheck. SRP given. - Results/Orders Results/Orders: 04/22/19 13:20 IV:Start .ONCE Abdomen Series [RAD] Stat URINALYSIS Stat Laboratory Results - last 24 hr 04/22/19 04/22/19 04/22/19 13:45 13:45 13:45 WBC 12.1 H RBC 3.80 L Hgb 10.5 L Hct 32.4 L MCV 85.3 MCH 27.7 MCHC 32.5 L RDW 16.9 H Plt Count 276 MPV 7.3 L Absolute Neuts (auto) 8.80 H Absolute Lymphs (auto) 2.10 Absolute Monos (auto) 0.80 Absolute Eos (auto) 0.20 Absolute Basos (auto) 0.20 H Neutrophils % 73.1 Lymphocytes % 17.3 L Monocytes % 6.9 Eosinophils % 1.4 Basophils % 1.3 Sodium 136 Potassium 3.4 L Chloride 102 Carbon Dioxide 23 Anion Gap 14.4 BUN 12 Creatinine 0.78 BUN/Creatinine Ratio 15.4 Random Glucose 112 H Serum Osmolality 272.5 L Calcium 8.3 L Total Bilirubin 0.3 AST 13 ALT 14 Alkaline Phosphatase 58 Serum Total Protein 6.2 L Albumin 3.3 Globulin 2.9 Albumin/Globulin Ratio 1.1 Lipase 40 Serum HCG, Qual Negative Departure - Departure Clinical Impression: Abdominal pain, Vomiting Disposition: Discharge to Home or Self Care Condition: Good Departure Forms: ED Discharge - Pt. Copy, Patient Portal Self Enrollment Instructions: DI for Abdominal Pain-Adult Diet: bland diet Referrals: MAMIE SOLIS [Primary Care Provider] - 1-2 Weeks Prescriptions: Promethazine Tab [Phenergan Tablet] 25 mg PO Q6H PRN #15 tab PRN Reason: Nausea Home Medications: Ambulatory Orders RX: Alprazolam [Xanax] 2 mg PO TID 04/14/18 RX: Amphetamine-Dextroamphetamine [Adderall 30 mg] 30 mg PO QID 04/14/18 RX: Duloxetine HCl [Cymbalta] 120 mg PO DAILY 04/14/18 RX: Lisinopril 40 mg PO DAILY 04/14/18 RX: Metoprolol Tartrate [Lopressor] 50 mg PO BID 04/14/18 Atorvastatin Calcium [Lipitor] 10 mg PO DAILY 02/02/19 RX: Carisoprodol 350 mg PO BID 02/02/19 Trazodone HCl [Trazodone Hydrochloride] 300 mg PO BEDTIME PRN 02/02/19 Zolpidem Tartrate [Ambien] 10 mg PO DAILY 02/02/19 Amlodipine Besylate [Norvasc] 5 mg PO BEDTIME 04/22/19 Cholecalciferol [D3 2000] 2,000 unit PO DAILY 04/22/19 Dicyclomine HCl [Bentyl] 10 mg PO TID PRN 04/22/19 Hydroxychloroquine Sulfate [Plaquenil] 200 mg PO DAILY 04/22/19 Lurasidone HCl [Latuda] 120 mg PO BEDTIME 04/22/19 Mirtazapine [Remeron] 15 mg PO BEDTIME 04/22/19 Pregabalin [Lyrica] 150 mg PO TID 04/22/19 Promethazine Tab [Phenergan Tablet] 25 mg PO Q6H PRN #15 tab 04/22/19 RX: Aspirin 325 mg PO DAILY 04/22/19 Topiramate [Qudexy Xr] 100 mg PO BEDTIME 04/22/19 Varenicline Tartrate [Chantix] 1 mg PO BID 04/22/19
[2019-04-22] MEDS ORDERED: SODIUM CHLORIDE 0.9% 50ML 50 ML ONE (13:44)
[2019-04-22] MEDS ORDERED: PROMETHAZINE HCL INJ 25 MG/ML VIAL ONE (13:44)
[2019-04-22] MEDS ORDERED: HEPARIN SODIUM 100 U/ML 5 ML SYG IV ONE (15:12)
[2019-04-22 15:23] VITALS: BP 147/90; TEMP 96.7; O2SAT 100
--- NOTE | 2019-04-23 11:14 | RAD ---
EXAM DESCRIPTION: Abdomen Series CLINICAL HISTORY: 39 years Female, abdominal pain COMPARISON: 02/02/2019. TECHNIQUE: Acute abdominal series was performed. FINDINGS: Right-sided pacemaker and left-sided chest [id number] are identified. Trachea is midline and the cardiomediastinal silhouette is normal in size. The lungs are clear with no acute consolidation. No abnormally dilated bowel loops are identified. Mild constipation. Ventricular peritoneal shunt catheter is identified with the tip noted in the left lower quadrant. Posterior spinal fixation hardware of the lower lumbar spine. IMPRESSION: No acute process is noted within the chest, abdomen and pelvis. Intact ventriculoperitoneal shunt catheter with the tip noted in the left lower quadrant. Electronically signed by: Samreen Mcgrath MD 04/23/2019 11:13 AM [employer]
== END 2019-04-22 15:23 | disposition home or self-care (01) ==
LOC: ER 12:53
DX: R10.13 Epigastric pain (principal); R11.2 Nausea with vomiting, unspecified; R19.7 Diarrhea, unspecified; I51.9 Heart disease, unspecified; I10 Essential (primary) hypertension; Z87.19 Personal history of other diseases of the digestive system; Z90.49 Acquired absence of other specified parts of digestive tract; Z95.0 Presence of cardiac pacemaker; Z87.891 Personal history of nicotine dependence; Z79.82 Long term (current) use of aspirin; Z79.899 Other long term (current) drug therapy
CPT/HCPCS: 74019; 80053; 81001; 83690; 84703; 85025; A4216; J1642; J2550; J7030